=== PATIENT | male | born 1950 | race Caucasian/White ===

== ENCOUNTER 2016-05-29 08:26 | Emergency (ER) ==
[2016-05-29] MEDS ORDERED: ASPIRIN PO STA (08:33)
[2016-05-29 08:48] LABS: MANUAL DIFF NEEDED? NO
[2016-05-29 08:49] LABS: BASO% 0.4 % (0.0-0.8); EOS# 0.13 X1000 (0.0-0.7); EOS% 1.1 % (0.0-10.0); HEMATOCRIT 47.6 % (42.0-52.0); HEMOGLOBIN 16.2 g/dL (14.0-18.0); IMM GRAN# 0.05 X1000 (0.0-0.04); IMM GRAN% 0.4 % (0.0-0.5); LYMPH# 5.31 X1000 (1.2-3.4); MCH 28.1 PG (27-31); MCV 82.5 FL (81-99); MONO# 0.79 X1000 (0.11-0.59); MONO% 6.4 % (1.7-9.3); MPV 9.4 FL (7.4-10.4); NEUT% 48.7 % (42.2-75.2); PLT 348 X1000 (130-400); RBC 5.77 XMIL (4.7-6.1)
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
[2016-05-29 09:02] LABS: INR 1.07 (0.86-1.15); PROTIME 14.2 Seconds (12.1-15.5)
[2016-05-29 09:03] LABS: PTT PL 35.4 Seconds (22.6-43.9)
[2016-05-29 09:11] LABS: AMYLASE 49 U/L (20-200); LIPASE 19 U/L (13-60)
[2016-05-29 09:13] LABS: AGAP 19; ALBUMIN 4.1 g/dL (3.5-5.0); ALKALINE PHOSPHATASE 76 U/L (32-122); BUN 22 mg/dL (8-22); CHLORIDE 98 mmol/L (98-107); CK PROFILE 80 U/L (24-204); COSMO 280; GOT 60 U/L (10-34); GPT 63 U/L (10-44); MAGNESIUM 2.1 mg/dL (1.5-2.7); POTASSIUM 4.2 mmol/L (3.5-5.1); SODIUM 138 mmol/L (136-145); TCO2 21 mmol/L (25-35); TOTAL PROTEIN 8.2 g/dL (6.3-8.3)
[2016-05-29 09:32] LABS: BE -4.5 mmoll (-3.0-3.0); BLOOD TYPE ARTERIAL; DRAW SITE R RADIAL; METHB 1.3 % (0.0-1.5); O2(CT) 20.1 mL/dL (15.0-23.0); PCO2(98.6) 45 mmHg (35-45); PO2(98.6) 59 mmHg (60-100); SAMPLE BLOOD; SAO2 87.1 % (95.0-100.0); THB 17.2 g/dL (11.5-17.4)
[2016-05-29 09:52] LABS: ALLEN TEST YES; MODALITY ROOM AIR
[2016-05-29 10:23] VITALS: BP 145/74
--- NOTE | 2016-05-29 10:40 | EKG Report ---
Test Performed on : 05/29/2016 08:35:49 AM Test Reason : SOB Blood Pressure : / mmHG Vent. Rate : 096 BPM Atrial Rate : 096 BPM P-R Int : 146 ms QRS Dur : 098 ms QT Int : 352 ms P-R-T Axes : 045 -46 060 degrees QTc Int : 444 ms Normal sinus rhythm. Left axis deviation Incomplete right bundle branch block Abnormal ECG No previous ECGs available Unconfirmed Result
--- NOTE | 2016-05-29 10:46 | Diag Imaging Result Document ---
PROCEDURE NAME: CHEST-2 VIEWS - 05/29/2016 PA AND LATERAL RADIOGRAPHS OF THE CHEST: COMPARISON: None available. FINDINGS: The lungs appear somewhat hyperinflated, suggesting possible COPD. There is minimal linear scarring versus subsegmental atelectasis at the right lower lung zone. There is a calcified granuloma at the periphery of the right lower lung zone. The lungs are clear otherwise. There is no definite pleural fluid collection. Cardiac silhouette and central vasculature are essentially unremarkable. IMPRESSION: Suggestion of likely COPD. No definite acute pathology is appreciated.
== END 2016-05-29 10:23 | disposition home or self-care (01) ==
LOC: P.ED 08:26
DX: J44.0 Chronic obstructive pulmonary disease with (acute) lower respiratory infection (principal); J20.9 Acute bronchitis, unspecified; J44.1 Chronic obstructive pulmonary disease with (acute) exacerbation; F10.120 Alcohol abuse with intoxication, uncomplicated; R94.31 Abnormal electrocardiogram [ECG] [EKG]; G89.29 Other chronic pain; R05 Cough; R06.2 Wheezing; R11.0 Nausea; R49.0 Dysphonia
CPT/HCPCS: 36415; 71020; 80053; 82150; 82550; 82805; 83690; 83735; 83880; 84484; 85025; 85610; 85730; 93005; 99284; G0480

== ENCOUNTER 2016-07-27 03:12 | Inpatient (IN) ==
[2016-07-27] MEDS ORDERED: NITROGLYCERIN SL PRN (03:16)
[2016-07-27] MEDS ORDERED: ASPIRIN PO STA (03:16)
[2016-07-27] MEDS ORDERED: M.V.I.-12 10 ML, FOLIC ACID 1 MG, MAGNESIUM SULFATE 1 GM, THIAMINE 100 MG in NS 1,000 ML IV ONE (03:27)
[2016-07-27 03:41] LABS: MANUAL DIFF NEEDED? NO
[2016-07-27 03:44] LABS: BASO% 0.9 % (0.0-0.8); HEMATOCRIT 48.7 % (42.0-52.0); HEMOGLOBIN 16.9 g/dL (14.0-18.0); LYMPH# 3.82 X1000 (1.2-3.4); LYMPH% 56.9 % (20.5-51.1); MCH 28.6 PG (27-31); MCHC 34.7 g/dL (33-37); MCV 82.4 FL (81-99); MPV 10.6 FL (7.4-10.4); NEUT% 33.2 % (42.2-75.2); PLT 151 X1000 (130-400); RBC 5.91 XMIL (4.7-6.1)
[2016-07-27 03:55] LABS: INR 1.01; PROTIME 10.7 Seconds (9.2-11.7); PTT 31.7 Seconds (22.0-36.0)
[2016-07-27 04:01] LABS: AGAP 22; ALKALINE PHOSPHATASE 57 U/L (32-122); AMYLASE 42 U/L (20-200); BUN 11 mg/dL (8-22); CALCIUM 8.7 mg/dL (8.8-10.2); CHLORIDE 98 mmol/L (98-107); COSMO 282; GOT 76 U/L (10-34); GPT 60 U/L (10-44); LIPASE 17 U/L (13-60); MAGNESIUM 1.8 mg/dL (1.5-2.7); POTASSIUM 3.7 mmol/L (3.5-5.1); SODIUM 142 mmol/L (136-145); TCO2 22 mmol/L (25-35); TOTAL BILIRUBIN 0.45 mg/dL (0.20-1.00)
--- NOTE | 2016-07-27 04:04 | PROVIDER DOCUMENTATION ---
[id number] Abuse/Overdose - General Chief Complaint: Shortness of Breath Stated Complaint: SOB Time Seen by Provider: 07/27/16 03:31 Source: patient, old records Allergies/Adverse Reactions: Allergies Allergy/AdvReac Type Severity Reaction Status Date / Time No Known Allergies Allergy Verified 07/27/16 03:35 Home Medications: Home Medication List Medication Instructions Recorded Confirmed Last Taken Type Albuterol Sulfate Inhaler 18 gm IH Q6H PRN PRN #1 inhaler 05/29/16 07/27/1612/06 Rx [Ventolin Hfa] - History of Present Illness-Drug/Alcohol Nature of Presenting Problem: 66 yo WM alcoholic (1/2 gallon of whisky/day for 50 years) brought in by EMS due to SOB. He has smoked up to 3 ppd since age 16 or so. 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 This episode of drinking or use began:: other (50 years ago) Severity: reports: severe Situational problems related to:: reports: N/A Psychiatric Complaints: reports: denies symptoms Associated Symptoms: reports: anxiety, diarrhea (black stools) Any injuries associated with this episode of intoxication?: No Recently seen or treated by another doctor?: No - Substance Abuse Substance Use: reports: alcohol Age drug/alcohol abuse began?: 16 Duration of Abuse? (years): 50 - Alcohol Abuse Last Drink?: 22:00 Type and amount of last drink?: whisky 1/2 gallon/day Usually drinks:: daily Other alcohols?: reports: N/A - Detox/Hospitalizations Previous detox/rehab admissions?: No Review of Systems - Adult - REVIEW OF SYSTEMS - ADULT Constitutional: reports: see HPI Eyes: reports: eye pain, redness Ears, Nose, Mouth & Throat: reports: sinus problem, loose teeth, mouth/dental pain, mouth swelling Cardiovascular: reports: chest pain Respiratory: reports: see HPI, chronic cough, excessive sputum production Gastrointestinal: reports: see HPI, abdominal pain, other (black stools) Musculoskeletal: reports: no symptoms reported Integumentary: reports: itching Neurological: reports: dizziness/vertigo, slurred speech Psychiatric: reports: see HPI Endocrine: reports: no symptoms reported Hematologic/Lymphatic: reports: no symptoms reported Allergic/Immunologic: reports: no symptoms reported All Other Systems: Reviewed and Negative Past History - Adult - PAST MEDICAL HISTORY-ADULT Review of Records: reports: Old Records Reviewed, Nursing Assessment Review, Medications Reviewed Major Childhood Illnesses: reports: denies history Cardiovascular: reports: denies history Respiratory: reports: bronchitis, COPD Gastrointestinal: reports: denies history Genitourinary: reports: denies history Musculoskeletal: reports: chronic pain Neurological: reports: denies history Psychiatric: reports: depression Endocrine/Immune: reports: denies history - PRIOR SURGERIES/PROCEDURES Surgical/Procedure History: reports: other - SOCIAL HISTORY Smoking: cigarettes, greater than 1 pack/day Substance Use: denies Alcohol Use Frequency: every day Number of drinks per typical drinking period:: >20 drinks Living Situation: 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 (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) Physical Exam-General - PHYSICAL EXAM-ADULT Exam Limited by: intoxicated Initial Vital Signs Reviewed: Yes - CONSTITUTIONAL General Appearance: alert, moderate distress, slow to respond - EYES Eyes: conjuctival exudate, subconjunctival hemorrhage - HEAD, EARS, NOSE, MOUTH & THROAT HENMT: normocephalic/atraumatic, dental decay - NECK Neck: non-tender, full range of motion, supple - RESPIRATORY Respiratory: chest non-tender, respiratory distress, wheezing - CARDIOVASCULAR Cardiovascular: normal peripheral pulses, regular rate, rhythm, no edema, no gallop, no JVD - GASTROINTESTINAL (ABDOMEN) Abdominal Exam: no organomegaly, no pulsatile mass, abnormal bowel sounds. negative: normal bowel sounds, non tender - GENITOURINARY Male Genitalia: deferred Rectal Exam: deferred - LYMPHATIC Lymphatic: no adenopathy - MUSCULOSKELETAL Back Exam: normal inspection, no CVA tenderness, no vertebral tenderness Extremity: normal range of motion, non-tender Peripheral Pulses: radial (R): 3+, radial (L): 3+ - NEUROLOGIC Neurologic: grossly normal - PSYCHIATRIC Psych/Mental Status: disheveled Progress - PLAN OF CARE/RESULTS Progress/Plan/Lab Results: Laboratory Tests 07/27/16 07/27/16 07/27/16 03:25 03:25 03:25 WBC 6.71 RBC 5.91 Hgb 16.9 Hct 48.7 MCV 82.4 MCH 28.6 MCHC 34.7 RDW Std Deviation 16.8 H Plt Count 151 MPV 10.6 H Immature Gran % (Auto) 0.0 Neut % (Auto) 33.2 L Lymph % (Auto) 56.9 H [place] % (Auto) 6.0 Eos % (Auto) 3.0 Baso % (Auto) 0.9 H Immature Gran # (Auto) 0.00 Neut # (Auto) 2.23 Lymph # (Auto) 3.82 H [place] # (Auto) 0.40 Eos # (Auto) 0.20 Baso # (Auto) 0.06 PT INR PTT (Actin FS) D-Dimer 0.50 Sodium 142 Potassium 3.7 Chloride 98 Carbon Dioxide 22 L Anion Gap 22 BUN 11 Creatinine 0.9 Estimated GFR/1.73 m2 > 60 BUN/Creatinine Ratio 12 Glucose 98 Calculated Osmolality 282 Calcium 8.7 L Phosphorus Magnesium 1.8 Total Bilirubin 0.45 AST 76 H ALT 60 H Alkaline Phosphatase 57 Creatine Kinase 315 H Troponin T Vmj-L-Jlladmkflsp Pept Total Protein 8.0 Albumin 4.0 Globulin 4.0 Albumin/Globulin Ratio 1.0 Amylase 42 Lipase 17 Plasma/Serum Ethyl Alc 07/27/16 07/27/16 07/27/16 03:25 03:25 03:25 WBC RBC Hgb Hct MCV MCH MCHC RDW Std Deviation Plt Count MPV Immature Gran % (Auto) Neut % (Auto) Lymph % (Auto) [place] % (Auto) Eos % (Auto) Baso % (Auto) Immature Gran # (Auto) Neut # (Auto) Lymph # (Auto) [place] # (Auto) Eos # (Auto) Baso # (Auto) PT 10.7 INR 1.01 PTT (Actin FS) 31.7 D-Dimer Sodium Potassium Chloride Carbon Dioxide Anion Gap BUN Creatinine Estimated GFR/1.73 m2 BUN/Creatinine Ratio Glucose Calculated Osmolality Calcium Phosphorus Magnesium Total Bilirubin AST ALT Alkaline Phosphatase Creatine Kinase Troponin T < 0.010 Our-R-Ufvlvgambfk Pept 67 Total Protein Albumin Globulin Albumin/Globulin Ratio Amylase Lipase Plasma/Serum Ethyl Alc 07/27/16 07/27/16 03:25 03:25 WBC RBC Hgb Hct MCV MCH MCHC RDW Std Deviation Plt Count MPV Immature Gran % (Auto) Neut % (Auto) Lymph % (Auto) [place] % (Auto) Eos % (Auto) Baso % (Auto) Immature Gran # (Auto) Neut # (Auto) Lymph # (Auto) [place] # (Auto) Eos # (Auto) Baso # (Auto) PT INR PTT (Actin FS) D-Dimer Sodium Potassium Chloride Carbon Dioxide Anion Gap BUN Creatinine Estimated GFR/1.73 m2 BUN/Creatinine Ratio Glucose Calculated Osmolality Calcium Phosphorus 2.6 L Magnesium Total Bilirubin AST ALT Alkaline Phosphatase Creatine Kinase Troponin T Gnz-W-Zvfqpiwpjql Pept Total Protein Albumin Globulin Albumin/Globulin Ratio Amylase Lipase Plasma/Serum Ethyl Alc 299 H Orders Category Date Time Status Cardiac Monitoring DIRECTED Care 07/27/16 03:16 Active Saline Loc NOW Care 07/27/16 03:16 Active ABDOMEN FLAT/UPRIGHT [RAD] Stat Exams 07/27/16 04:04 Taken CHEST-2 VIEWS [RAD] Stat Exams 07/27/16 03:16 Ordered ALCOHOL BLOOD Stat Lab 07/27/16 03:25 Completed AMYLASE [CHEM] Stat Lab 07/27/16 03:25 Received CBC WITH ELECTRONIC DIFF [HEME] Stat Lab 07/27/16 03:25 Completed CK PROFILE [SP CHEM] Stat Lab 07/27/16 03:25 Received COMPREHENSIVE METABOLIC PANEL [CHEM] Stat Lab 07/27/16 03:25 Received D-DIMER [CHEM] Stat Lab 07/27/16 03:25 Received LIPASE [CHEM] Stat Lab 07/27/16 03:25 Received MAGNESIUM [CHEM] Stat Lab 07/27/16 03:25 Received PHOSPHORUS [CHEM] Stat Lab 07/27/16 03:25 Completed PRO B-NATRIURETIC PEPTIDE Stat Lab 07/27/16 03:25 Received PROTIME WITH INR [COAG] Stat Lab 07/27/16 03:25 Completed PTT [COAG] Stat Lab 07/27/16 03:25 Completed TROPONIN T Stat Lab 07/27/16 03:25 Received Aspirin Med 07/27/16 03:16 Discontinued 325 mg PO STAT STA Mvi [M.v.i.-12] 10 ml Med 07/27/16 03:27 Active Folic Acid 1 mg Magnesium Sulfate 1 gm Thiamine 100 mg 0.9% Sodium Chloride Inj [Ns] 1,000 ml IV NOW Nitroglycerin Sl [Nitroglycerin] Med 07/27/16 03:16 Active 0.4 mg SL Q5M PRN PRN EKG [EKG] Stat Ther 07/27/16 03:16 Ordered Vital Signs Temp Pulse Resp BP Pulse Ox 07/27/16 03:13 97.8 F 102 H 24 160/100 93 L No Known Allergies Allergy (Verified 07/27/16 03:35) Albuterol Sulfate Inhaler [Ventolin Hfa] 18 gm IH Q6H PRN PRN #1 inhaler Laboratory 07/27/16 07/27/16 07/27/16 03:25 03:25 03:25 WBC RBC Hgb Hct MCV MCH MCHC RDW Std Deviation Plt Count MPV Immature Gran % (Auto) Neut % (Auto) Lymph % (Auto) [place] % (Auto) Eos % (Auto) Baso % (Auto) Immature Gran # (Auto) Neut # (Auto) Lymph # (Auto) [place] # (Auto) Eos # (Auto) Baso # (Auto) PT INR PTT (Actin FS) D-Dimer Sodium Potassium Chloride Carbon Dioxide Anion Gap BUN Creatinine Estimated GFR/1.73 m2 BUN/Creatinine Ratio Glucose Calculated Osmolality Calcium Phosphorus 2.6 L Magnesium Total Bilirubin AST ALT Alkaline Phosphatase Creatine Kinase Troponin T < 0.010 Cbs-J-Rfcqogskkup Pept Total Protein Albumin Globulin Albumin/Globulin Ratio Amylase Lipase Plasma/Serum Ethyl Alc 299 H 07/27/16 07/27/16 07/27/16 03:25 03:25 03:25 WBC RBC Hgb Hct MCV MCH MCHC RDW Std Deviation Plt Count MPV Immature Gran % (Auto) Neut % (Auto) Lymph % (Auto) [place] % (Auto) Eos % (Auto) Baso % (Auto) Immature Gran # (Auto) Neut # (Auto) Lymph # (Auto) [place] # (Auto) Eos # (Auto) Baso # (Auto) PT 10.7 INR 1.01 PTT (Actin FS) 31.7 D-Dimer 0.50 Sodium Potassium Chloride Carbon Dioxide Anion Gap BUN Creatinine Estimated GFR/1.73 m2 BUN/Creatinine Ratio Glucose Calculated Osmolality Calcium Phosphorus Magnesium Total Bilirubin AST ALT Alkaline Phosphatase Creatine Kinase Troponin T Xxd-R-Etzlzapidwq Pept 67 Total Protein Albumin Globulin Albumin/Globulin Ratio Amylase Lipase Plasma/Serum Ethyl Alc 07/27/16 07/27/16 03:25 03:25 WBC 6.71 RBC 5.91 Hgb 16.9 Hct 48.7 MCV 82.4 MCH 28.6 MCHC 34.7 RDW Std Deviation 16.8 H Plt Count 151 MPV 10.6 H Immature Gran % (Auto) 0.0 Neut % (Auto) 33.2 L Lymph % (Auto) 56.9 H [place] % (Auto) 6.0 Eos % (Auto) 3.0 Baso % (Auto) 0.9 H Immature Gran # (Auto) 0.00 Neut # (Auto) 2.23 Lymph # (Auto) 3.82 H [place] # (Auto) 0.40 Eos # (Auto) 0.20 Baso # (Auto) 0.06 PT INR PTT (Actin FS) D-Dimer Sodium 142 Potassium 3.7 Chloride 98 Carbon Dioxide 22 L Anion Gap 22 BUN 11 Creatinine 0.9 Estimated GFR/1.73 m2 > 60 BUN/Creatinine Ratio 12 Glucose 98 Calculated Osmolality 282 Calcium 8.7 L Phosphorus Magnesium 1.8 Total Bilirubin 0.45 AST 76 H ALT 60 H Alkaline Phosphatase 57 Creatine Kinase 315 H Troponin T Dyl-F-Rngsugvvcsg Pept Total Protein 8.0 Albumin 4.0 Globulin 4.0 Albumin/Globulin Ratio 1.0 Amylase 42 Lipase 17 Plasma/Serum Ethyl Alc - EKG 1 Time of EKG reading by physician:: 04:33 EKG Read and Signed by:: Joseph Lutz Rate: 98 Rhythm: sinus [place]: left - XRAY 1 XRAY Study: Chest Impression: Abnormal, See EMR Report XRAY Interpretation: copd 2 XRAY Study: Abdomen Impression: Normal - CONSULTS/PCP/HOSPITALIST Notification #1 *Consult/PCP/Hospitalist*: Dr Bass Time Discussed: 06:13 Departure - Departure Time of Disposition Order: 06:14 DIAGNOSIS: Alcohol abuse with intoxication with complication Disposition: ADMITTED INPATIENT 09 Certified Medical Emergency: Emergent Condition: Fair
[2016-07-27 04:25] LABS: CK PROFILE 315 U/L (24-204)
[2016-07-27 04:40] LABS: CK INDEX 0.8 (0.0-2.5); CK-MB 2.61 ng/mL (0.0-5.0)
[2016-07-27] MEDS ORDERED: ATIVAN IV ONE ×2 (05:11→06:45)
[2016-07-27] MEDS ORDERED: ZOFRAN IV ONE (06:52)
--- NOTE | 2016-07-27 07:44 | EKG Report ---
Test Performed on : 07/27/2016 03:15:15 AM Test Reason : Chest Pain Blood Pressure : / mmHG Vent. Rate : 098 BPM Atrial Rate : 098 BPM P-R Int : 134 ms QRS Dur : 088 ms QT Int : 338 ms P-R-T Axes : 054 -54 060 degrees QTc Int : 431 ms Normal sinus rhythm. Left axis deviation Abnormal ECG When compared with ECG of 29-MAY-2016 08:35, Incomplete right bundle branch block is no longer present Unconfirmed Result
--- NOTE | 2016-07-27 08:16 | Diag Imaging Result Document ---
PROCEDURE NAME: CHEST-2 VIEWS - 07/27/2016 FRONTAL AND LATERAL CHEST, TWO VIEWS: COMPARISON: Compared to 06/08/2016. FINDINGS: The lungs are well expanded. The heart is not enlarged. The vessels are not distended. No pleural effusions. Questionable tiny amount of scarring in the left base. 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 No free air beneath the diaphragm. IMPRESSION: No acute abnormality.
[2016-07-27] MEDS ORDERED: DUONEB (A & A) INH PRN (08:47)
[2016-07-27] MEDS ORDERED: ATIVAN IV PRN (08:47)
--- NOTE | 2016-07-27 09:01 | Diag Imaging Result Document ---
PROCEDURE NAME: ABDOMEN FLAT/UPRIGHT - 07/27/2016 FLAT AND UPRIGHT RADIOGRAPH OF THE ABDOMEN: COMPARISON: None available. FINDINGS: There are nonspecific bowel gas and stool patterns. There is no obstructive pattern. There is no evidence of large-volume free abdominal gas. There is no definite organomegaly. Metallic clips project over the right upper quadrant. IMPRESSION: Nonspecific abdomen.
[2016-07-27] MEDS: ATIVAN IV PRN ×4 (09:43→23:38)
[2016-07-27] MEDS: ZOFRAN IV PRN ×2 (10:00→14:11)
--- NOTE | 2016-07-27 10:05 | Diag Imaging Result Document ---
PROCEDURE NAME: THORAX/ABDOMEN/PELVIS - 07/27/2016 CT CHEST, ABDOMEN AND PELVIS WITH INTRAVENOUS CONTRAST. DOSE REDUCTION PROTOCOL: COMPARISON: No comparison films. CHEST WITH CONTRAST: FINDINGS: No pleural effusions. No cardiomegaly. No thoracic aortic aneurysm or dissection. No enlarged mediastinal or hilar lymph nodes. There are emphysematous changes. Increased markings are found in the right lower lobe. No consolidation. No bronchiectasis. Mild thickening to the distal esophagus. IMPRESSION: 1. Right lower lobe fibrosis, atelectasis, or a small infiltrate. 2. Emphysema. ABDOMEN AND PELVIS WITH INTRAVENOUS CONTRAST: FINDINGS: There is prominent fatty infiltration of the liver. The gallbladder has been removed. There is thickening to the distal esophagus. Normal spleen and adrenal glands. No inflammation about the pancreas. No pancreatic mass. Normal enhancement of the kidneys. No hydronephrosis. No aortic aneurysm. Moderate atherosclerosis. No bowel obstruction. Normal appearance. No abscess. There is an anterior abdominal wall hernia above the umbilicus. A portion of the transverse colon is found within this. No obstruction or definite wall thickening although the colon is not overly distended. There are diverticula in the distal colon. The urinary bladder is distended and appears normal. The prostate is not enlarged. IMPRESSION: 1. Small anterior abdominal wall hernia containing a portion of transverse colon, but no obstruction or definite wall thickening. 2. Cholecystectomy. 3. Prominent fatty infiltration of the liver. 4. Possible reflux and esophagitis. 5. Diverticulosis. 6. Mild superior endplate compression fracture to the L1 vertebra. This is not definitely identified on the lateral chest x-ray from 06/08/2016.
[2016-07-27] MEDS: NS 1,000 ML IV SCH ×2 (10:07→20:36)
[2016-07-27] MEDS: ROCEPHIN 1 GM/NS 50 ML IV SCH (10:07)
[2016-07-27] MEDS: PROTONIX IV SCH ×2 (10:08→20:30)
[2016-07-27 10:24] LABS: RETIC% 0.71 % (0.8-2.1); RETIC-HE 34.3 PG (28.2-36.6)
[2016-07-27 10:34] LABS: HEMOGLOBIN A1C 6.2 % (4.8-6.0)
[2016-07-27] MEDS: DUONEB (A & A) INH SCH ×4 (10:40→22:57)
[2016-07-27 10:43] LABS: FREE T4 0.92 ng/dL (0.93-1.70)
[2016-07-27 10:51] LABS: URINE CULTURE NEEDED? NO; URINE MICRO REVIEW NEEDED? NO; URINE SOURCE CLEAN CATCH
[2016-07-27 10:57] LABS: BILIRUBIN URINE NEGATIVE (NEGATIVE); BLOOD URINE NEGATIVE (NEGATIVE); COLOR YELLOW; GLUCOSE URINE NEGATIVE (NEGATIVE); LEUKOCYTES URINE NEGATIVE (NEGATIVE); NITRITE URINE NEGATIVE (NEGATIVE); PROTEIN URINE 50 mg/dL (NEGATIVE); SP GRAVITY URINE 1.026; TURBIDITY URINE CLEAR (CLEAR); UR EPITHELIAL CELLS <10 /HPF (<10); URINE BACTERIA NEGATIVE /HPF; URINE RBC <10 /HPF (<10); URINE WBC <10 /HPF (<10); UROBILINOGEN URINE 2 mg/dL (NORMAL)
[2016-07-27 11:04] LABS: CK INDEX 0.9 (0.0-2.5); CK-MB 2.68 ng/mL (0.0-5.0)
[2016-07-27 11:49] LABS: UR AMPHETAMINES QUAL NONE DETECTED (NONE DETECT); UR BARBITUATES QUAL NONE DETECTED (NONE DETECT); UR BENZODIAZEPIN QUAL NONE DETECTED (NONE DETECT); UR CANNABINOIDS QUAL NONE DETECTED (NONE DETECT); UR COCAINE QUAL NONE DETECTED (NONE DETECT); UR METHADONE QUAL NONE DETECTED (NONE DETECT); UR OPIATES QUAL NONE DETECTED (NONE DETECT); UR OXYCODONE QUAL NONE DETECTED (NONE DETECT); UR PCP QUAL NONE DETECTED (NONE DETECT)
--- NOTE | 2016-07-27 12:41 | HISTORY AND PHYSICAL ---
CHIEF COMPLAINT: Shortness of breath and alcohol withdrawal. HISTORY OF PRESENT ILLNESS: Mr. Rahman is an unfortunate 66-year-old male, who carries a longstanding history of polysubstance dependence including consumption of half gallon to a gallon of whiskey a day, occasional prescription drug abuse, nicotine dependence, also with a history of hypertension, who presents with multiple days of worsening alcohol withdrawal symptoms including shaking, sweating, diarrhea, dry heaves, and abdominal pain. He has also been having shortness of breath with cough and yellow sputum production. He is unsure exactly when symptoms began but likely around 3 or 4 days ago he started having mild shortness of breath with cough and this progressed to fairly significant shortness of breath and coughing with yellow sputum production. He denies any overt fevers but reports cold chills and sweats. He has tried to wean himself off of alcohol and, apparently, he tried to buy a fifth of whiskey instead of a half gallon or gallon, and he says this did not work, and he has been having fairly severe alcohol withdrawal symptoms as well. He denies any chest pain. He denies any seizures. No loss of consciousness. No orthopnea. No lower extremity edema. He has longstanding ventral wall hernias in his abdomen, and this has been causing him significant pain for quite some time. On physical exam, his belly is somewhat distended and generally painful to palpation. When he got to the ER today, his alcohol level was 300. His laboratory data is largely unremarkable. Chest and abdomen x-ray did not show anything acute. He has already been given multiple milligrams of Ativan for withdrawal symptoms. Given his heavy alcohol consumption and symptomatology, we are going to admit him to the ICU for close treatment and evaluation. Currently, he is mildly hypoxic saturating in the low 90s with 3 L of nasal cannula. His blood pressure and heart rate are stable. PAST MEDICAL HISTORY: 1. Alcohol dependence. 2. Marijuana dependence. 3. Prescription drug dependence including opiate pain killers and benzodiazepines. 4. Hypertension. 5. COPD. SURGICAL HISTORY: The patient has had a right femur ORIF, a right wrist ORIF, cholecystectomy secondary to trauma. SOCIAL HISTORY: The patient drinks about a half gallon to a gallon of whiskey a day and has been doing so apparently for decades. He smokes a pack and a half to 2 packs of cigarettes a day; again, for decades. He reports occasional prescription drug abuse taking opiates and benzodiazepines roughly 1-2 times a month. He was quite nonspecific about that. He smokes occasional marijuana as well. He is single. He has 3 children. He is retired from [employer]. He lives in the [place] area. FAMILY HISTORY: Noncontributory but, apparently, he has quite a few alcoholics in the family. HOME MEDICATIONS: None. ALLERGIES: No known drug allergies. REVIEW OF SYSTEMS: Fourteen-point review of systems obtained and found to be negative with the exception of the HPI. PHYSICAL EXAMINATION: VITAL SIGNS: Blood pressure is 162/109, heart rate 84, respiratory rate 20, O2 saturations 93% on 2 L. Temperature is 97.6 degrees. GENERAL: This is an obese male lying in the hospital bed in mild alcohol withdrawal, but in no acute distress. NEUROLOGIC: The patient is awake and alert. He is oriented. He follows coverage without focal deficits. He is somewhat nervous and agitated. His hands are only mildly tremulous. HEENT: Head atraumatic and normocephalic. His pupils are equal and sluggish to light bilaterally. His sclerae are injected and anicteric. Oral mucosa is dry. He has poor dentition. Overall oropharynx is clear. CHEST: Diminished throughout with, perhaps, only slight wheezing bilaterally. CV: Regular rate and rhythm. S1-S2 is noted. No murmurs, gallops, clicks, or rubs. GI: Somewhat distended. He has clear ventral wall hernia that is painful to palpation. Overall, his belly is diffusely tender mostly in the epigastric and periumbilical region. Hypoactive bowel sounds are noted. EXTREMITIES: Diminished pulses are noted bilaterally but palpable. There is no edema. DIAGNOSTIC DATA: Abdomen x-ray shows nonspecific abdomen. Nothing acute. Chest x-ray shows no acute abnormality. EKG shows sinus tachycardia without acute ST-T abnormalities. There is left axis deviation. WBC 6.71, hemoglobin 16.9, hematocrit 48.7, platelet count 151,000. PT 10.7, INR 1.01. D-dimer 0.5. Sodium 142, potassium 3.7, chloride 98, CO2 of 22, anion gap 22. BUN 11, creatinine 0.9, glucose 98. Calcium 8.7, phosphorus 2.6. Magnesium 1.8. Bilirubin 0.45. AST 76, ALT 60. CK 315. Troponin negative. CK-MB 2.61. Protein 8. Lipase is 17. Alcohol level is 299. ASSESSMENT AND PLAN: 1. Acute alcohol intoxication/withdrawal: The patient is currently drinking heavy amounts of liquor on a daily basis. We are going to need to admit him to the ICU and watch him closely to prevent delirium tremens or withdrawal seizures. We have ordered IV benzodiazepines as needed, we will likely schedule these and have IV Valium or phenobarbital as standby if symptoms worsen. We are also going to start a banana bag, check a folate and B12, check a hepatitis panel and check a CT of his thorax, abdomen, and pelvis. Again, he will be monitored in the ICU quite closely. 2. Dyspnea: Likely COPD exacerbation. We will treat him for such with breathing treatments and IV antibiotics and aggressive pulmonary toilet. We are also going to check a CT of the thorax with IV contrast. The amount of dyspnea and hypoxia is not concordant with his chest x-ray, so, we will rule out alternative causes and also check an echocardiogram, rule out myocardial infarction with cardiac enzymes. 3. Abdominal pain. We are going to check a CT of the abdomen and pelvis, add Protonix b.i.d. and IV fluids. Given the amount of alcohol, the patient has been using, cirrhosis is likely. We will check a CT of the abdomen and go from there. 4. Hypertension: We will be cautious with antihypertensives with the addition of high doses of benzodiazepine. We will treat p.r.n. with hydralazine or clonidine. 5. Polysubstance dependence: The patient will need long-term therapy including 12-step groups and psychotherapy. Once the patient is a bit more stable, we will continue to talk about this more. 6. Nicotine dependence: The patient has been highly advised to quit smoking. Nicotine patch has been prescribed, and we will continue daily cessation education. 7. Gastrointestinal prophylaxis will be provided with b.i.d. Protonix and deep venous thrombosis prophylaxis with TEDs sequential compression devices given his high levels of alcohol use and potency for bleeding. Further recommendations to follow. Please note: Critical care time with the patient was 45 minutes. Dictated by FLOYD Borrego for Khang Gr MD
[2016-07-27] MEDS ORDERED: PHENOBARBITAL IV ONE ×2 (20:08→20:45)
[2016-07-27] MEDS ORDERED: BEER PO ONE ×3 (20:09→21:30)
[2016-07-27] MEDS ORDERED: PHENOBARBITAL IV PRN (20:10)
[2016-07-27] MEDS ORDERED: CATAPRES PO SCH (20:15)
[2016-07-27] MEDS ORDERED: LIBRIUM PO SCH (20:15)
[2016-07-27] MEDS: SODIUM CHLORIDE 0.9% INJ SCH (20:30)
[2016-07-27] MEDS: TEARISOL OPH SOLUTION BOTH EYES SCH (20:30)
[2016-07-27] MEDS ORDERED: CATAPRES-TTS-1 TD ONE (20:39)
[2016-07-27] MEDS ORDERED: CATAPRES PO ONE (20:40)
[2016-07-27] MEDS: VALIUM IV PRN ×4 (21:11→22:17)
[2016-07-27] MEDS: PHENOBARBITAL IV PRN (22:17)
[2016-07-27 22:46] LABS: URINE CULTURE NEEDED? NO; URINE MICRO REVIEW NEEDED? NO; URINE SOURCE CATH
[2016-07-27 22:50] LABS: BILIRUBIN URINE NEGATIVE (NEGATIVE); BLOOD URINE TRACE (NEGATIVE); COLOR YELLOW; GLUCOSE URINE NEGATIVE (NEGATIVE); LEUKOCYTES URINE NEGATIVE (NEGATIVE); NITRITE URINE NEGATIVE (NEGATIVE); PH URINE 5.5; PROTEIN URINE TRACE mg/dL (NEGATIVE); SP GRAVITY URINE 1.041; TURBIDITY URINE CLEAR (CLEAR); UROBILINOGEN URINE NORMAL (NORMAL)
[2016-07-27 22:52] LABS: UR EPITHELIAL CELLS <10 /HPF (<10); URINE BACTERIA NEGATIVE /HPF; URINE RBC <10 /HPF (<10); URINE WBC <10 /HPF (<10)
[2016-07-28] MEDS: PHENOBARBITAL IV PRN ×5 (00:57→21:19)
[2016-07-28] MEDS: ATIVAN IV PRN ×4 (01:48→20:37)
[2016-07-28] MEDS: DUONEB (A & A) INH SCH ×6 (02:48→22:35)
[2016-07-28] MEDS: M.V.I.-12 10 ML, FOLIC ACID 1 MG, MAGNESIUM SULFATE 1 GM, THIAMINE 100 MG in NS 1,000 ML IV SCH (04:02)
[2016-07-28 05:43] LABS: MANUAL DIFF NEEDED? NO
[2016-07-28 06:46] LABS: BASO% 0.4 % (0.0-0.8); EOS# 0.13 X1000 (0.0-0.7); EOS% 2.5 % (0.0-10.0); HEMATOCRIT 38.6 % (42.0-52.0); HEMOGLOBIN 12.9 g/dL (14.0-18.0); LYMPH# 1.37 X1000 (1.2-3.4); LYMPH% 26.1 % (20.5-51.1); MCH 28.6 PG (27-31); MCHC 33.4 g/dL (33-37); MCV 85.6 FL (81-99); MONO# 0.37 X1000 (0.11-0.59); MPV 10.9 FL (7.4-10.4); PLT 98 X1000 (130-400); RBC 4.51 XMIL (4.7-6.1)
[2016-07-28 07:09] LABS: AGAP 16; ALBUMIN 3.4 g/dL (3.5-5.0); ALKALINE PHOSPHATASE 43 U/L (32-122); BUN 8 mg/dL (8-22); CALCIUM 7.8 mg/dL (8.8-10.2); CHLORIDE 101 mmol/L (98-107); COSMO 278; GOT 52 U/L (10-34); GPT 41 U/L (10-44); POTASSIUM 4.2 mmol/L (3.5-5.1); SODIUM 141 mmol/L (136-145); TCO2 24 mmol/L (25-35); TOTAL BILIRUBIN 0.76 mg/dL (0.20-1.00); TOTAL PROTEIN 6.6 g/dL (6.3-8.3)
[2016-07-28] MEDS: ROCEPHIN 1 GM/NS 50 ML IV SCH (08:30)
[2016-07-28] MEDS: PROTONIX IV SCH ×2 (08:30→20:37)
[2016-07-28] MEDS: SODIUM CHLORIDE 0.9% INJ SCH ×2 (08:30→20:37)
[2016-07-28] MEDS: TEARISOL OPH SOLUTION BOTH EYES SCH ×4 (08:30→20:38)
--- NOTE | 2016-07-28 09:10 | PROGRESS NOTE ---
DATE: 07/28/2016 SUBJECTIVE: This patient is alert and oriented today. Also, he is tolerating p.o. During the night, this patient had an episode of withdrawal, high blood pressure, sweating, and confusion that was treated by the night team. Today, the blood pressure is high and he looks a little bit better. He is complaining of back pain and diffuse abdominal pain. We started talking about quitting smoking and the possibility of a detox center upon discharge. This patient states that he has been in some of the detox centers but it did not work. I will continue with daily cessation education. OBJECTIVE: Vital Signs: Temperature 98.2 degrees, pulse 80, respiratory rate 22, blood pressure 170/93, oxygen saturation is 92 on 3 L of nasal cannula. HEENT: Head normocephalic. No trauma. PERRLA. Neck: Supple. No JVD. No masses. Central trachea. Chest: Decreased air entry bilaterally. Mild rales at the bases. Cardiovascular: RRR. No murmurs. Abdomen: Soft, distended, generalized tenderness to palpation but mostly at the level of the epigastric area. No rebound. No peritoneal irritation. Extremities: No edema. No clubbing. No cyanosis. Neurological Examination: The patient is alert and oriented x3. He looks anxious. Laboratory: WBC 5.2, hemoglobin 12.9, hematocrit 38.6, platelets 98,000. Sodium 141, potassium 4.2, chloride 101, bicarbonate 24, BUN 8, creatinine 0.8, glucose 78, calcium 7.8. Total bilirubin 0.7, AST 52, ALT 41, alkaline phosphatase 43. Albumin 3.4. ASSESSMENT AND PLAN: 1. Acute alcohol intoxication/withdrawal. I will put this patient on scheduled Librium 50 mg every 6 hours. I will continue monitoring this patient in the intensive care unit. Also, this patient is on Ativan as needed. I started talking to this patient about the possibility of a detox center but I think it is too soon to talk about that. He states though that he has been in some detox centers before. I will continue also with the intravenous hydration and banana bag. 2. Dyspnea. At this moment, this patient is on breathing treatments and aggressive pulmonary toilet. We will continue to monitor. His CT with contrast of the chest showed right lower lobe fibrosis, atelectasis, and emphysema so the shortness of breath is likely related to a chronic obstructive pulmonary disease exacerbation. 3. Abdominal pain. This patient is complaining of diffuse abdominal pain. We had a CT scan that showed a small anterior abdominal wall hernia containing a portion of the transverse colon but no obstruction or any definite wall thickening. He also has a prominent fatty infiltration of the liver, esophagitis, diverticulosis. 4. Hypertension. I will put this patient on clonidine schedule. The blood pressure has been high, between 180s and 170s. 5. Polysubstance dependence. This patient has been highly advised against alcohol and cigarette smoking. I will continue with daily cessation education. I think this patient should be transferred in a few days to a detox center. 6. Nicotine dependence. As above. 7. Gastrointestinal prophylaxis. Continue with Protonix. 8. Deep venous thrombosis prophylaxis. We will do sequential compression devices for now. CRITICAL CARE TIME: 45 minutes.
[2016-07-28] MEDS: CATAPRES PO SCH ×2 (09:31→20:37)
[2016-07-28] MEDS: LIBRIUM PO SCH ×3 (09:31→20:37)
[2016-07-28 13:01] LABS: HEPATITIS PROFILE ACUTE SEE COMMENTS (())
[2016-07-28] MEDS: NS 1,000 ML IV SCH ×2 (15:21→15:26)
[2016-07-29] MEDS: DUONEB (A & A) INH SCH ×6 (02:47→23:02)
[2016-07-29] MEDS: M.V.I.-12 10 ML, FOLIC ACID 1 MG, MAGNESIUM SULFATE 1 GM, THIAMINE 100 MG in NS 1,000 ML IV SCH (04:05)
[2016-07-29] MEDS: LIBRIUM PO SCH ×4 (04:05→20:13)
[2016-07-29] MEDS: NS 1,000 ML IV SCH ×3 (04:08→20:13)
[2016-07-29] MEDS: ATIVAN IV PRN ×3 (04:19→13:02)
[2016-07-29] MEDS: PHENOBARBITAL IV PRN ×5 (04:36→18:52)
[2016-07-29] MEDS ORDERED: VALIUM IV ONE (04:47)
[2016-07-29 05:46] LABS: MANUAL DIFF NEEDED? NO
[2016-07-29 05:49] LABS: BASO% 0.2 % (0.0-0.8); EOS% 3.9 % (0.0-10.0); HEMATOCRIT 39.8 % (42.0-52.0); HEMOGLOBIN 13.3 g/dL (14.0-18.0); LYMPH# 1.31 X1000 (1.2-3.4); LYMPH% 25.6 % (20.5-51.1); MCH 28.7 PG (27-31); MCHC 33.4 g/dL (33-37); MCV 85.8 FL (81-99); MONO# 0.31 X1000 (0.11-0.59); MONO% 6.1 % (1.7-9.3); MPV 12.4 FL (7.4-10.4); NEUT% 64.2 % (42.2-75.2); PLT 118 X1000 (130-400); RBC 4.64 XMIL (4.7-6.1)
[2016-07-29 07:51] LABS: AGAP 15; BUN 5 mg/dL (8-22); CHLORIDE 97 mmol/L (98-107); COSMO 268; POTASSIUM 3.7 mmol/L (3.5-5.1); SODIUM 136 mmol/L (136-145); TCO2 24 mmol/L (25-35)
[2016-07-29] MEDS: TEARISOL OPH SOLUTION BOTH EYES SCH ×4 (08:28→20:27)
[2016-07-29] MEDS: CATAPRES PO SCH ×2 (08:28→20:14)
[2016-07-29] MEDS: ROCEPHIN 1 GM/NS 50 ML IV SCH (08:29)
[2016-07-29] MEDS: PROTONIX IV SCH ×2 (08:29→20:30)
--- NOTE | 2016-07-29 11:10 | PROGRESS NOTE ---
DATE: 07/29/2016 SUBJECTIVE: This patient has been in the ICU for a couple of days. Today he looks somnolent but he is arousable and following commands. He has been a heavy drinker for a very long period of time. He drinks around 1.8 L daily of liquor. His vital signs have been stable. I will continue for now with the same treatment. OBJECTIVE: Vital Signs: Temperature 98 degrees, pulse 88, respiratory rate 16, blood pressure 137/78 looking right now at the monitor, oxygen saturation 97% on a Venturi mask. HEENT: Head normocephalic. No trauma. PERRLA. Neck: Supple. No JVD. No masses. Central trachea. Chest: Clear to auscultation. No wheezing. No rales. Abdomen: Soft, distended. Nontender to palpation. Positive bowel sounds. Cardiovascular: RRR. No murmurs. Extremities: No edema. No clubbing. No cyanosis. Neurological: The patient is sleepy but arousable. He is following commands. No signs of delirium tremens or alcohol withdrawal at this moment. LABORATORY: WBC 5.1, hemoglobin 13.3, hematocrit 39.4, platelets 118,000. Sodium 136, potassium 3.7, chloride 97, bicarbonate 24, BUN 5, creatinine 0.7, glucose 85, calcium 8. ASSESSMENT AND PLAN: 1. Acute alcoholic intoxication/withdrawal. I will continue with the same treatment. He is on Librium 50 mg every 6 hours p.o. and also he has p.r.n. medication in case of alcohol withdrawal, delirium tremens, or seizures. Once this patient is ready to talk, I will talk about sending this patient to a detox center. I will continue with the IV fluids and multivitamin. 2. Dyspnea. I will continue with respiratory treatment, but this patient is not complaining today of shortness of breath. 3. Abdominal pain. The abdominal pain is getting better. We will continue to monitor. 4. Hypertension. This patient is on clonidine scheduled. The blood pressure has been stable. Continue to monitor. 5. Polysubstance dependence. This patient has been highly advised against alcohol and cigarette smoking. I will continue with daily cessation education. 6. Gastrointestinal prophylaxis. Continue with Protonix. 7. Deep vein thrombosis prophylaxis. We will do sequential compression devices for now. CRITICAL CARE TIME: 45 minutes.
[2016-07-29] MEDS: NICODERM PATCH TD PRN (20:14)
[2016-07-29] MEDS: SODIUM CHLORIDE 0.9% INJ SCH (20:29)
[2016-07-30] MEDS: DUONEB (A & A) INH SCH ×6 (03:35→23:48)
[2016-07-30] MEDS: LIBRIUM PO SCH ×4 (03:38→20:42)
[2016-07-30] MEDS: M.V.I.-12 10 ML, FOLIC ACID 1 MG, MAGNESIUM SULFATE 1 GM, THIAMINE 100 MG in NS 1,000 ML IV SCH (03:38)
[2016-07-30 05:01] LABS: MANUAL DIFF NEEDED? NO
[2016-07-30 05:14] LABS: BASO% 0.4 % (0.0-0.8); EOS# 0.17 X1000 (0.0-0.7); EOS% 3.4 % (0.0-10.0); HEMATOCRIT 40.4 % (42.0-52.0); HEMOGLOBIN 13.5 g/dL (14.0-18.0); LYMPH% 27.6 % (20.5-51.1); MCH 28.8 PG (27-31); MCHC 33.4 g/dL (33-37); MCV 86.3 FL (81-99); MONO# 0.25 X1000 (0.11-0.59); MONO% 4.9 % (1.7-9.3); NEUT% 63.7 % (42.2-75.2); PLT 80 X1000 (130-400); RBC 4.71 XMIL (4.7-6.1)
[2016-07-30 05:23] LABS: AGAP 17; ALBUMIN 3.6 g/dL (3.5-5.0); ALKALINE PHOSPHATASE 48 U/L (32-122); BUN 5 mg/dL (8-22); CHLORIDE 98 mmol/L (98-107); COSMO 270; GOT 60 U/L (10-34); GPT 44 U/L (10-44); POTASSIUM 3.8 mmol/L (3.5-5.1); SODIUM 137 mmol/L (136-145); TCO2 22 mmol/L (25-35); TOTAL BILIRUBIN 0.51 mg/dL (0.20-1.00); TOTAL PROTEIN 7.2 g/dL (6.3-8.3)
[2016-07-30] MEDS: CATAPRES PO SCH ×2 (08:19→20:42)
[2016-07-30] MEDS: TEARISOL OPH SOLUTION BOTH EYES SCH ×4 (08:20→20:44)
[2016-07-30] MEDS: SODIUM CHLORIDE 0.9% INJ SCH ×2 (08:21→20:42)
[2016-07-30] MEDS: PROTONIX IV SCH ×2 (08:21→20:42)
[2016-07-30] MEDS: ROCEPHIN 1 GM/NS 50 ML IV SCH (08:21)
[2016-07-30] MEDS: NS 1,000 ML IV SCH ×2 (12:08→21:13)
[2016-07-30 13:10] LABS: HCV BY PCR SEE COMMENTS (()); HCV CHARGE YES
[2016-07-30] MEDS: ATIVAN IV PRN ×2 (14:19→18:38)
--- NOTE | 2016-07-30 15:17 | PROGRESS NOTE ---
DATE: 07/30/2016 SUBJECTIVE: This patient looks a little bit better today compared with yesterday, he is still confused in time. He is oriented in place and person. He is weak and he is tolerating ice chips and sips of water. My plan today is to continue with the same treatment. Advance the diet and physical therapy. Probably in 1 or 2 days I am going to be able to send this patient to the regular floor. OBJECTIVE: Vital Signs: Temperature 98.5 degrees, pulse 88, respiratory rate 22, blood pressure 101/57, O2 saturation 93% on 5 L of nasal cannula. HEENT: Head normocephalic. No trauma. PERRLA. Neck: Supple. No JVD. No masses. Central trachea. Chest: Clear to auscultation. No wheezing. No rales. Abdomen: Soft, obese, mildly distended. Tender to palpation at the lower abdominal area. Positive bowel sounds. Cardiovascular: RRR. No murmurs. Extremities: No edema. No clubbing. No cyanosis. Neurological: The patient is sleepy, but arousable. He is oriented in person and place. He is oriented in time. No signs of delirium tremens or alcohol withdrawal at this moment. LABORATORY: WBC 5, hemoglobin 13.5, hematocrit 40.4, platelets 80. Sodium 137, potassium 3.8, chloride 98, bicarbonate 22, BUN 5, creatinine 0.6, glucose 78, calcium 8. ASSESSMENT AND PLAN: 1. Acute alcoholic intoxication/withdrawal. I will continue with the same management. He is on Librium 50 mg every 6 hours oral, and also as-needed medications in case of alcohol withdrawal or delirium tremens or seizures. Probably this patient will be sent to a detoxification center next week once he is better. Today, I will ask for physical therapy and also I will advance the diet. Also, we will continue with intravenous fluids and multivitamin. 2. Dyspnea. At this moment he is not complaining of shortness of breath. I will continue with the same treatment. 3. Abdominal pain. Even though the abdominal pain is getting better, he is still complaining of lower abdominal pain. We will continue to monitor. 4. Hypertension. This patient is on clonidine schedule. The blood pressure has been stable. Continue to monitor. 5. Polysubstance dependence. This patient has been highly advised against alcohol and cigarette smoking. I will continue with daily cessation education. 6. Gastrointestinal prophylaxis. Continue with Protonix. 7. Deep vein thrombosis prophylaxis. I will continue with sequential compression devices. CRITICAL CARE TIME: 30 minutes.
[2016-07-31] MEDS: LIBRIUM PO SCH ×4 (02:23→20:54)
[2016-07-31] MEDS: DUONEB (A & A) INH SCH ×6 (03:48→23:53)
[2016-07-31] MEDS: M.V.I.-12 10 ML, FOLIC ACID 1 MG, MAGNESIUM SULFATE 1 GM, THIAMINE 100 MG in NS 1,000 ML IV SCH (04:34)
[2016-07-31 05:40] LABS: MANUAL DIFF NEEDED? NO
[2016-07-31 06:00] LABS: BASO% 0.7 % (0.0-0.8); EOS# 0.15 X1000 (0.0-0.7); EOS% 3.5 % (0.0-10.0); HEMATOCRIT 40.4 % (42.0-52.0); HEMOGLOBIN 13.5 g/dL (14.0-18.0); LYMPH# 1.46 X1000 (1.2-3.4); MCH 28.8 PG (27-31); MCHC 33.4 g/dL (33-37); MCV 86.1 FL (81-99); MONO# 0.38 X1000 (0.11-0.59); MONO% 8.8 % (1.7-9.3); MPV 10.8 FL (7.4-10.4); PLT 91 X1000 (130-400); RBC 4.69 XMIL (4.7-6.1)
[2016-07-31 06:44] LABS: AGAP 15; ALBUMIN 3.3 g/dL (3.5-5.0); ALKALINE PHOSPHATASE 44 U/L (32-122); BUN 8 mg/dL (8-22); CALCIUM 8.9 mg/dL (8.8-10.2); CHLORIDE 100 mmol/L (98-107); COSMO 274; GOT 42 U/L (10-34); GPT 40 U/L (10-44); POTASSIUM 3.6 mmol/L (3.5-5.1); SODIUM 138 mmol/L (136-145); TCO2 23 mmol/L (25-35); TOTAL BILIRUBIN 0.47 mg/dL (0.20-1.00); TOTAL PROTEIN 6.8 g/dL (6.3-8.3)
[2016-07-31] MEDS: PROTONIX IV SCH ×2 (08:19→20:54)
[2016-07-31] MEDS: SODIUM CHLORIDE 0.9% INJ SCH ×2 (08:19→20:54)
[2016-07-31] MEDS: CATAPRES PO SCH ×2 (08:20→20:54)
[2016-07-31] MEDS: ROCEPHIN 1 GM/NS 50 ML IV SCH (08:20)
[2016-07-31] MEDS: TEARISOL OPH SOLUTION BOTH EYES SCH ×4 (08:30→20:59)
--- NOTE | 2016-07-31 12:30 | PROGRESS NOTE ---
DATE: 07/31/2016 SUBJECTIVE: This patient looks a little bit better compared with yesterday. He is more awake, at this moment he is eating and he is tolerating food. Today physical therapy will work with him. This patient today is hallucinating, he is telling me that he sees some animals inside the room and also he has seen some bugs, actually he has some paper on his ear to prevent some of the bugs from getting inside his ear canal. OBJECTIVE: Vital Signs: Temperature 98.4 degrees, pulse 85, respiratory rate 21. Blood pressure 147/113, O2 saturation 97% on 5 L of nasal cannula. HEENT: Head, normocephalic. No trauma. PERRLA. Neck: Supple. No JVD. No masses. Central trachea. Chest: Clear to auscultation. No wheezing. No rales. Abdomen: Soft, obese, mildly distended. Tender to palpation at the lower abdominal area. Positive bowel sounds. Cardiovascular: RRR. No murmurs. Extremities: No edema. No clubbing. No cyanosis. Neurological: The patient is sleepy but arousable. He is oriented in person. He is hallucinating. No signs of alcohol withdrawal at this moment. LABORATORY: WBC 4.3, hemoglobin 13.5, hematocrit 40.4, platelet 91,000. Sodium 138, potassium 3.6, chloride 100, bicarbonate 23, BUN 8, creatinine 0.7. Glucose 94. Calcium 8.9, AST 42, ALT 40, alkaline phosphatase 44. Albumin 3.3. ASSESSMENT AND PLAN: 1. Initially admitted secondary to acute alcoholic intoxication/withdrawal, I think the treatment is working. He is on Librium 50 mg every 6 hours orally and also he is on p.r.n. medications in case of alcohol withdrawal or delirium tremens or seizures. Probably this patient will be sent to a detox center next week once he is better. Today physical therapy will work with him, he is tolerating diet and I will continue with the IV fluids and multivitamin. 2. Abdominal pain. He is tolerating p.o. I think this abdominal pain is chronic. He is complaining of lower abdominal pain. We will continue to monitor. 3. Hypertension. The blood pressure is stable. We will continue with clonidine scheduled. 4. Polysubstance dependence. This patient has been highly advised against alcohol and cigarette smoking. I will continue with daily cessation education. 5. Gastrointestinal prophylaxis. Continue with Protonix. 6. DVT prophylaxis. I will continue with SCDs. CRITICAL CARE TIME: 30 minutes.
[2016-07-31] MEDS: NS 1,000 ML IV SCH ×2 (12:48→20:54)
[2016-08-01] MEDS: DUONEB (A & A) INH SCH ×6 (03:50→23:44)
[2016-08-01] MEDS: M.V.I.-12 10 ML, FOLIC ACID 1 MG, MAGNESIUM SULFATE 1 GM, THIAMINE 100 MG in NS 1,000 ML IV SCH (04:21)
[2016-08-01] MEDS: NS 1,000 ML IV SCH ×2 (04:21→17:01)
[2016-08-01] MEDS: LIBRIUM PO SCH ×4 (04:21→20:10)
[2016-08-01 06:10] LABS: MANUAL DIFF NEEDED? NO
[2016-08-01 06:20] LABS: BASO% 0.4 % (0.0-0.8); EOS# 0.12 X1000 (0.0-0.7); EOS% 2.6 % (0.0-10.0); HEMATOCRIT 39.8 % (42.0-52.0); HEMOGLOBIN 13.2 g/dL (14.0-18.0); LYMPH# 1.36 X1000 (1.2-3.4); LYMPH% 29.5 % (20.5-51.1); MCH 28.8 PG (27-31); MCHC 33.2 g/dL (33-37); MCV 86.7 FL (81-99); MONO# 0.58 X1000 (0.11-0.59); MONO% 12.6 % (1.7-9.3); MPV 10.9 FL (7.4-10.4); NEUT% 54.9 % (42.2-75.2); PLT 114 X1000 (130-400); RBC 4.59 XMIL (4.7-6.1)
[2016-08-01 06:38] LABS: AGAP 10; ALBUMIN 3.1 g/dL (3.5-5.0); ALKALINE PHOSPHATASE 44 U/L (32-122); BUN 7 mg/dL (8-22); CALCIUM 8.4 mg/dL (8.8-10.2); CHLORIDE 101 mmol/L (98-107); COSMO 272; GOT 39 U/L (10-34); GPT 41 U/L (10-44); POTASSIUM 3.4 mmol/L (3.5-5.1); SODIUM 137 mmol/L (136-145); TCO2 26 mmol/L (25-35); TOTAL BILIRUBIN 0.33 mg/dL (0.20-1.00); TOTAL PROTEIN 6.6 g/dL (6.3-8.3)
[2016-08-01] MEDS: CATAPRES PO SCH ×2 (08:32→20:10)
[2016-08-01] MEDS: NICODERM PATCH TD PRN (08:32)
[2016-08-01] MEDS: SODIUM CHLORIDE 0.9% INJ SCH ×2 (08:32→20:10)
[2016-08-01] MEDS: PROTONIX IV SCH ×2 (08:32→20:10)
[2016-08-01] MEDS: ROCEPHIN 1 GM/NS 50 ML IV SCH (08:33)
[2016-08-01] MEDS: TEARISOL OPH SOLUTION BOTH EYES SCH ×4 (08:33→20:12)
[2016-08-01] MEDS ORDERED: KLOR-CON PO ONE (08:57)
--- NOTE | 2016-08-01 10:14 | PROGRESS NOTE ---
DATE: 08/01/2016 SUBJECTIVE: This patient looks better compared with yesterday. He is more awake. He is talking better. He is tolerating food but he needs to eat slowly or otherwise he will choke. He is not hallucinating today. Physical therapy evaluated this patient yesterday and apparently he stood up. This patient's vital signs are stable. I will transfer this patient to the medical floor to continue treatment. OBJECTIVE: Vital Signs: Temperature 98.4 degrees, pulse 80, respiratory rate 16, blood pressure 131/59, oxygen saturation 96% on 5 L of nasal cannula. HEENT: Head normocephalic. No trauma. PERRLA. Neck: Supple. No JVD. No masses. Central trachea. Chest: Clear to auscultation. No wheezing. No rales. Abdomen: Soft, obese, mildly distended. Mild tenderness to palpation at the level of the lower abdominal area. Positive bowel sounds. Cardiovascular: RRR. No murmurs. Extremities: No edema. No clubbing. No cyanosis. Neurological Examination: The patient is alert. He is oriented in person, time, and place. He is not hallucinating. No signs of alcohol withdrawal or delirium tremens at this moment. Laboratory: WBC 4.6, hemoglobin 13.2, hematocrit 39.8, platelets 114,000. Sodium 137, potassium 3.4, chloride 101, bicarbonate 26, BUN 7, creatinine 0.8, glucose 106, calcium 8.4. Albumin 3.1. ASSESSMENT AND PLAN: 1. Initially, this patient was admitted secondary to alcohol intoxication/withdrawal. I think the treatment is working. He is on Librium 50 mg every 6 hours orally and also he has some as needed medication in case of alcohol withdrawal, delirium tremens, or seizures. Probably, this patient will be sent to a detox center next week, once he is better. Physical therapy is on board. We will continue with that. He is tolerating diet but he needs to eat slowly. Otherwise, he will choke. I will continue with intravenous fluids and multivitamins. Today, he is completely alert and he is oriented x3. He will be transferred to the regular floor. 2. Abdominal pain. He is tolerating orals. I think the abdominal pain is chronic. We will continue to monitor. 3. Hypertension, stable. Continue with clonidine scheduled. 4. Polysubstance dependence. This patient has been highly advised against alcohol and cigarette smoking. I will continue with daily cessation education. 5. Gastrointestinal prophylaxis. Continue with Protonix. 6. Deep venous thrombosis prophylaxis. I will continue with sequential compression devices for now. CRITICAL CARE TIME: 30 minutes.
[2016-08-01] MEDS: ATIVAN IV PRN (21:23)
[2016-08-02] MEDS: LIBRIUM PO SCH ×3 (02:04→15:20)
[2016-08-02] MEDS: M.V.I.-12 10 ML, FOLIC ACID 1 MG, MAGNESIUM SULFATE 1 GM, THIAMINE 100 MG in NS 1,000 ML IV SCH (03:31)
[2016-08-02] MEDS: DUONEB (A & A) INH SCH ×6 (03:50→23:20)
[2016-08-02 04:55] LABS: MANUAL DIFF NEEDED? NO
[2016-08-02 05:21] LABS: BASO% 0.3 % (0.0-0.8); EOS# 0.09 X1000 (0.0-0.7); EOS% 2.5 % (0.0-10.0); HEMATOCRIT 37.9 % (42.0-52.0); HEMOGLOBIN 12.8 g/dL (14.0-18.0); LYMPH# 1.11 X1000 (1.2-3.4); LYMPH% 30.9 % (20.5-51.1); MCH 29.2 PG (27-31); MCHC 33.8 g/dL (33-37); MCV 86.3 FL (81-99); MONO# 0.49 X1000 (0.11-0.59); MONO% 13.6 % (1.7-9.3); MPV 10.1 FL (7.4-10.4); NEUT% 52.7 % (42.2-75.2); PLT 122 X1000 (130-400); RBC 4.39 XMIL (4.7-6.1)
[2016-08-02 05:42] LABS: AGAP 11; ALBUMIN 3.2 g/dL (3.5-5.0); ALKALINE PHOSPHATASE 41 U/L (32-122); BUN 7 mg/dL (8-22); CALCIUM 8.6 mg/dL (8.8-10.2); CHLORIDE 103 mmol/L (98-107); COSMO 275; GOT 35 U/L (10-34); GPT 38 U/L (10-44); POTASSIUM 3.8 mmol/L (3.5-5.1); SODIUM 138 mmol/L (136-145); TCO2 24 mmol/L (25-35); TOTAL PROTEIN 6.7 g/dL (6.3-8.3)
[2016-08-02] MEDS: PROTONIX IV SCH ×2 (08:45→20:59)
[2016-08-02] MEDS: SODIUM CHLORIDE 0.9% INJ SCH ×2 (08:45→20:59)
[2016-08-02] MEDS: ROCEPHIN 1 GM/NS 50 ML IV SCH (08:46)
[2016-08-02] MEDS: CATAPRES PO SCH ×2 (08:46→20:59)
[2016-08-02] MEDS: TEARISOL OPH SOLUTION BOTH EYES SCH ×4 (08:47→21:49)
[2016-08-02] MEDS: NS 1,000 ML IV SCH ×2 (09:42→13:37)
--- NOTE | 2016-08-02 12:13 | PROGRESS NOTE ---
DATE: 08/02/2016 SUBJECTIVE: This patient looks better today and he is feeling better as well. He is not hallucinating. He is more awake. He is tolerating food. Physical therapy is on board. OBJECTIVE: Vital Signs: Temperature 98.2 degrees, pulse 71, respiratory rate 13, blood pressure 157/97, oxygen saturation 96% on 5 L of nasal cannula. HEENT: Head normocephalic. No trauma. PERRLA. Neck: Supple. No JVD. No masses. Central trachea. Chest: Clear to auscultation. No wheezing. No rales. Abdomen: Soft, obese, mildly distended. Mild tenderness to palpation at the level of the lower abdominal area. He has a ventral hernia. Positive bowel sounds. Cardiovascular: RRR. No murmurs. Extremities: No edema. No clubbing. No cyanosis. Neurological: The patient is alert. He is oriented x3. He is not hallucinating. No signs of alcohol withdrawal or delirium tremens at this moment, just generalized weakness. LABORATORY: WBC 3.5, hemoglobin 12.8, hematocrit 37.9, platelets 122,000. Sodium 138, potassium 3.8, chloride 103, bicarbonate 24, BUN 7, creatinine 0.8, glucose 118, calcium 8.6, albumin 3.2. ASSESSMENT AND PLAN: 1. This patient initially was admitted secondary to alcohol intoxication/withdrawal. I think the treatment is working. He is only Librium 50 mg p.o. q.6 hours and also he is on p.r.n. medications in case of alcohol withdrawal, delirium tremens, or seizures. Today I had a conversation with the social workers and they will try to contact a detox center. Physical therapy is on board. I will continue with the same management for now. 2. Abdominal pain. He is tolerating food. I think this abdominal pain is chronic. We will continue to monitor. 3. Hypertension. Stable. Continue with clonidine scheduled. 4. Polysubstance dependent. This patient has been highly advised against alcohol and cigarette smoking. We will continue with daily cessation education. 5. Gastrointestinal prophylaxis. Continue with Protonix. 6. Deep vein thrombosis prophylaxis. I will continue with SCDs. 7. This case has been discussed with the clinical social worker. Will try to get a detox center so we can safely discharge this patient.
[2016-08-02] MEDS: ATIVAN IV PRN (20:59)
[2016-08-03] MEDS: DUONEB (A & A) INH SCH ×6 (03:17→23:46)
[2016-08-03] MEDS: LIBRIUM PO SCH ×5 (03:37→20:05)
[2016-08-03] MEDS: M.V.I.-12 10 ML, FOLIC ACID 1 MG, MAGNESIUM SULFATE 1 GM, THIAMINE 100 MG in NS 1,000 ML IV SCH (03:50)
[2016-08-03 07:01] LABS: MANUAL DIFF NEEDED? NO
[2016-08-03 07:16] LABS: BASO% 0.5 % (0.0-0.8); EOS# 0.07 X1000 (0.0-0.7); EOS% 1.9 % (0.0-10.0); HEMATOCRIT 38.6 % (42.0-52.0); HEMOGLOBIN 12.8 g/dL (14.0-18.0); LYMPH# 1.16 X1000 (1.2-3.4); LYMPH% 31.2 % (20.5-51.1); MCH 28.8 PG (27-31); MCHC 33.2 g/dL (33-37); MCV 86.7 FL (81-99); MONO# 0.55 X1000 (0.11-0.59); MONO% 14.8 % (1.7-9.3); MPV 10.3 FL (7.4-10.4); NEUT% 51.6 % (42.2-75.2); PLT 162 X1000 (130-400); RBC 4.45 XMIL (4.7-6.1)
[2016-08-03 07:28] LABS: AGAP 9; ALBUMIN 3.3 g/dL (3.5-5.0); ALKALINE PHOSPHATASE 43 U/L (32-122); BUN 7 mg/dL (8-22); CALCIUM 8.6 mg/dL (8.8-10.2); CHLORIDE 102 mmol/L (98-107); COSMO 278; GOT 37 U/L (10-34); GPT 41 U/L (10-44); SODIUM 140 mmol/L (136-145); TCO2 29 mmol/L (25-35); TOTAL BILIRUBIN 0.21 mg/dL (0.20-1.00)
[2016-08-03] MEDS: CATAPRES PO SCH ×2 (10:23→20:05)
[2016-08-03] MEDS: SODIUM CHLORIDE 0.9% INJ SCH ×2 (10:23→20:05)
[2016-08-03] MEDS: PROTONIX IV SCH ×2 (10:23→20:05)
[2016-08-03] MEDS: ROCEPHIN 1 GM/NS 50 ML IV SCH (10:24)
[2016-08-03] MEDS: TEARISOL OPH SOLUTION BOTH EYES SCH ×4 (10:25→20:16)
[2016-08-03] MEDS: NS 1,000 ML IV SCH ×2 (13:43→13:45)
--- NOTE | 2016-08-03 16:13 | PROGRESS NOTE ---
DATE: 08/03/2016 SUBJECTIVE: This patient looks about the same compared with yesterday. He is getting better. He told me that he has been seeing bugs on and off. He is more awake. He is tolerating food. Physical therapy is on board. I will continue with the same management for now. remelt worker is on board and they are looking for any detox center to send this patient over. OBJECTIVE: Vital Signs: Temperature 98.1 degrees, pulse 73, respiratory rate 21. Blood pressure 145/79, oxygen saturation 94% on 2 L of nasal cannula. HEENT: Head normocephalic. No trauma. PERRLA. Neck: Supple. No JVD. No masses. Central trachea. Chest: Clear to auscultation. No wheezing. No rales. Abdomen: Soft, obese, mildly distended. Mild tenderness to palpation at the level of the lower abdominal area. He has a ventral hernia. Positive bowel sounds. Cardiovascular: RRR. No murmurs. Extremities: No edema. No clubbing. No cyanosis. Neurological examination: The patient is alert. He is oriented x3. He is having hallucinations on and off. No signs of alcohol withdrawal or delirium tremens at this moment, just generalized weakness. LABORATORY: WBC 3.7, hemoglobin 12.8, hematocrit. 38.6, platelet 162. Sodium 140, potassium 4, chloride 102, bicarbonate 29, BUN 7, creatinine 0.9, glucose 107, calcium 8.6, AST 37, ALT 41, alkaline phosphatase 43, albumin 3.3. ASSESSMENT AND PLAN: 1. This patient initially was admitted secondary to alcohol intoxication/withdrawal. I will continue with Librium 50 mg p.o. q. 6 hours and also p.r.n. medications in case of alcohol withdrawal, delirium tremens or seizures. remelt worker is on board and they are trying to find a detox center for this patient. Physical therapy is on board. We will continue with the same management for now. 2. Abdominal pain. He is tolerating food. I think this abdominal pain is chronic. We will continue to monitor. 3. Physical deconditioning. Physical therapy is on board. We will continue with the same management. 4. Hypertension, stable. Continue with clonidine scheduled. 5. Polysubstance dependence. This patient has been highly advised against alcohol and cigarette smoking. We will continue with daily cessation education. 6. Gastrointestinal prophylaxis. Continue with Protonix. 7. Deep vein thrombosis prophylaxis. I will continue with sequential compression devices.
[2016-08-04] MEDS: LIBRIUM PO SCH ×4 (02:13→20:16)
[2016-08-04] MEDS: NICODERM PATCH TD PRN (02:15)
[2016-08-04] MEDS: NS 1,000 ML IV SCH ×3 (04:20→20:22)
[2016-08-04] MEDS: M.V.I.-12 10 ML, FOLIC ACID 1 MG, MAGNESIUM SULFATE 1 GM, THIAMINE 100 MG in NS 1,000 ML IV SCH (04:20)
[2016-08-04] MEDS: DUONEB (A & A) INH SCH ×6 (04:49→23:14)
[2016-08-04 07:32] LABS: MANUAL DIFF NEEDED? NO
[2016-08-04 07:39] LABS: BASO% 0.2 % (0.0-0.8); EOS# 0.07 X1000 (0.0-0.7); EOS% 1.7 % (0.0-10.0); HEMATOCRIT 38.2 % (42.0-52.0); HEMOGLOBIN 12.6 g/dL (14.0-18.0); LYMPH# 1.21 X1000 (1.2-3.4); LYMPH% 29.8 % (20.5-51.1); MCH 28.4 PG (27-31); MCV 86.2 FL (81-99); MONO# 0.81 X1000 (0.11-0.59); NEUT% 48.3 % (42.2-75.2); PLT 186 X1000 (130-400); RBC 4.43 XMIL (4.7-6.1)
[2016-08-04 07:52] LABS: AGAP 11; ALBUMIN 3.4 g/dL (3.5-5.0); ALKALINE PHOSPHATASE 44 U/L (32-122); BUN 7 mg/dL (8-22); CHLORIDE 101 mmol/L (98-107); COSMO 275; GOT 47 U/L (10-34); GPT 47 U/L (10-44); SODIUM 139 mmol/L (136-145); TCO2 27 mmol/L (25-35); TOTAL PROTEIN 7.1 g/dL (6.3-8.3)
[2016-08-04] MEDS: SODIUM CHLORIDE 0.9% INJ SCH ×2 (08:26→20:16)
[2016-08-04] MEDS: TEARISOL OPH SOLUTION BOTH EYES SCH ×4 (08:26→20:17)
[2016-08-04] MEDS: PROTONIX IV SCH ×2 (08:26→20:16)
[2016-08-04] MEDS: CATAPRES PO SCH ×2 (08:27→20:16)
--- NOTE | 2016-08-04 15:18 | PROGRESS NOTE ---
DATE: 08/04/2016 SUBJECTIVE: This patient looks a little bit better today compared with yesterday, he was sitting on a chair. Family members at the bedside, his daughter. He is talking better, but he is still weak to the point that he cannot walk to the bathroom. OBJECTIVE: Vital Signs: Temperature 98.3 degrees, pulse 73, respiratory rate 20, blood pressure 144/83, oxygen saturation 95% on nasal cannula. HEENT: Head normocephalic. No trauma. PERRLA. Neck: Supple. No JVD. No masses. Central trachea. Chest: Clear to auscultation. No wheezing. No rales. Cardiovascular: RRR. No murmurs. Abdomen: Soft, nondistended. Mild tenderness to palpation at the level of the lower abdomen. Positive bowel sounds. Extremities: No edema. No clubbing. No cyanosis. Neurological examination: The patient is alert and oriented x3. No focal neurological deficits. Generalized weakness. LABORATORY: WBC 4, hemoglobin 12.6, hematocrit 38.2, platelets 186. Sodium 139, potassium 4, chloride 101, bicarbonate 29, BUN 7, creatinine 0.8, glucose 98, calcium 9. ASSESSMENT AND PLAN: 1. Patient admitted secondary to alcohol intoxication/withdrawal. He feels much better. I will continue with Librium 50 mg oral every 6 hours and also as-needed medications in case of alcohol withdrawal, delirium tremens or seizures. fabric worker fitter on board. They are trying to find a detoxification center for this patient. I had a conversation with the daughter. She states that he lives with her and, even though they are living together, he drinks every day. Will continue with the same management for now. 2. Abdominal pain. This patient had a has a chronic abdominal pain. He is tolerating food. We will continue to monitor. 3. Physical deconditioning. This patient is on physical therapy. We will continue with the same management. 4. Hypertension, stable. Continue with clonidine schedule. 5. Polysubstance dependence. This patient has been highly advised against alcohol and cigarette smoking. We will continue with daily cessation education. 6. Gastrointestinal prophylaxis. Continue with Protonix. 7. Deep vein thrombosis prophylaxis. I will continue with sequential compression devices and physical therapy.
[2016-08-04] MEDS: ATIVAN IV PRN (23:45)
[2016-08-05] MEDS: DUONEB (A & A) INH SCH ×6 (03:15→23:20)
[2016-08-05] MEDS: LIBRIUM PO SCH ×4 (03:49→22:46)
[2016-08-05] MEDS: M.V.I.-12 10 ML, FOLIC ACID 1 MG, MAGNESIUM SULFATE 1 GM, THIAMINE 100 MG in NS 1,000 ML IV SCH (03:49)
[2016-08-05 07:40] LABS: MANUAL DIFF NEEDED? NO
[2016-08-05 07:49] LABS: BASO% 0.9 % (0.0-0.8); EOS% 2.2 % (0.0-10.0); HEMATOCRIT 39.9 % (42.0-52.0); HEMOGLOBIN 12.9 g/dL (14.0-18.0); LYMPH% 32.3 % (20.5-51.1); MCH 28.1 PG (27-31); MCHC 32.3 g/dL (33-37); MCV 86.9 FL (81-99); MONO# 0.79 X1000 (0.11-0.59); MPV 9.9 FL (7.4-10.4); NEUT% 47.6 % (42.2-75.2); PLT 246 X1000 (130-400); RBC 4.59 XMIL (4.7-6.1)
[2016-08-05 08:24] LABS: AGAP 12; ALBUMIN 3.8 g/dL (3.5-5.0); ALKALINE PHOSPHATASE 47 U/L (32-122); BUN 9 mg/dL (8-22); CALCIUM 9.2 mg/dL (8.8-10.2); CHLORIDE 101 mmol/L (98-107); COSMO 280; GOT 53 U/L (10-34); GPT 53 U/L (10-44); POTASSIUM 4.1 mmol/L (3.5-5.1); SODIUM 141 mmol/L (136-145); TCO2 28 mmol/L (25-35); TOTAL BILIRUBIN 0.22 mg/dL (0.20-1.00); TOTAL PROTEIN 7.5 g/dL (6.3-8.3)
[2016-08-05] MEDS: TEARISOL OPH SOLUTION BOTH EYES SCH ×4 (08:30→22:46)
[2016-08-05] MEDS: PROTONIX IV SCH ×2 (08:31→22:45)
[2016-08-05] MEDS: CATAPRES PO SCH ×2 (08:31→22:46)
[2016-08-05] MEDS: SODIUM CHLORIDE 0.9% INJ SCH ×2 (08:31→22:45)
[2016-08-05] MEDS ORDERED: GOLYTELY PO ONE (15:26)
[2016-08-05] MEDS: NS 1,000 ML IV SCH ×2 (16:15)
--- NOTE | 2016-08-05 17:24 | PROGRESS NOTE ---
DATE: 08/05/2016 Patient reports feeling better. He is still weak to the point that he cannot walk to the bathroom. OBJECTIVE: Vital Signs: Temperature 97.5 degrees, heart rate 69, respiratory 14, blood pressure 150/73. O2 saturation 96% 2 L nasal cannula. General: This is a chronically ill-looking, disheveled 66-year-old male, lying in bed, in no acute distress. HEENT: Head is normocephalic, atraumatic. Anicteric sclerae and pale conjunctivae. Mucous membranes moist. Neck: Supple. No JVD noted. No carotid bruits. No lymphadenopathy. No thyromegaly. Cardiovascular: S1, S2 heard. No murmurs, gallops, or rubs. Regular rate and rhythm. Respiratory: Clear bilaterally to auscultation. No work of breathing or using accessory muscles. Abdomen: Soft, nontender to palpation. Bowel sounds present. No organomegaly. Extremities: No clubbing, cyanosis, or edema. Peripheral pulses present in both legs. Neurological: Patient alert and oriented x3. Moves 4 extremities. LABORATORY DATA: Reviewed. ASSESSMENT AND PLAN: 1. Alcohol withdrawal. Patient clinically feeling better. Continue with Librium 50 q.6 hours that we are going to taper off it slowly. Actually clinical social work aide is trying to get a placement for this patient. We will check on them tomorrow. 2. Abdominal pain. Patient has chronic abdominal pain but he is tolerating the food and he is eating okay. We will continue to monitor. 3. Physical deconditioning. Physical therapy is following this patient. We will check on them how this patient is doing. 4. Hypertension. That condition is stable. We will continue with clonidine. 5. Polysubstance abuse. Patient has been advised to stop using alcohol and tobacco.
[2016-08-05] MEDS: ATIVAN IV PRN (18:22)
[2016-08-06] MEDS: LIBRIUM PO SCH ×3 (03:21→18:15)
[2016-08-06] MEDS: M.V.I.-12 10 ML, FOLIC ACID 1 MG, MAGNESIUM SULFATE 1 GM, THIAMINE 100 MG in NS 1,000 ML IV SCH (03:21)
[2016-08-06] MEDS: DUONEB (A & A) INH SCH ×5 (03:25→20:04)
[2016-08-06] MEDS: NS 1,000 ML IV SCH ×3 (06:36→16:43)
[2016-08-06] MEDS: TEARISOL OPH SOLUTION BOTH EYES SCH ×5 (09:50→21:50)
[2016-08-06] MEDS: SODIUM CHLORIDE 0.9% INJ SCH (09:50)
[2016-08-06] MEDS: CATAPRES PO SCH ×3 (09:50→21:50)
[2016-08-06] MEDS: PROTONIX IV SCH ×3 (09:50→21:50)
--- NOTE | 2016-08-06 15:26 | PROGRESS NOTE ---
DATE: 08/06/2016 SUBJECTIVE: Patient reports feeling better. He is still having some mild cough. He reports that he is weak and not able to go to the bathroom. He denies any fever or chills. OBJECTIVE: Vital Signs: Temperature 97.6 degrees, heart rate 74, respiratory rate 20, blood pressure 130/42, O2 saturation 92% 2 L nasal cannula. General Examination: This is a chronically ill-looking and disheveled 66-year-old male lying in bed in no acute distress. HEENT: Head is normocephalic and atraumatic. Anicteric sclerae and pale conjunctivae. Mucous membranes moist. Neck: Supple. No JVD. No carotid bruits. No lymphadenopathy. No thyromegaly. Cardiovascular: S1, S2 heard. No murmurs, gallops, rubs. Regular rate and rhythm. Respiratory: Coarse breath sounds in both bases with very few wheezing both bases. Patient is not using any accessory muscles or having work of breathing. Abdomen: Soft, nontender to palpation. Bowel sounds present. No organomegaly. Extremities: No clubbing, cyanosis, edema. Peripheral pulses present in both legs. Neurological: Patient alert, oriented x3. Able to move 4 extremities. Grossly normal. Almost no hand tremors. LABORATORY DATA: There is no lab from today. ASSESSMENT AND PLAN: 1. Alcohol withdrawal. Patient clinically is better. He is not having more visual hallucinations. We are going to taper down the dose of Librium from 50 to 25 q.8 hours. personnel worker is trying to get a placement for this patient for alcohol rehabilitation but this patient needs to get physical therapy 1st. Physical therapy following him daily. 2. Abdominal pain. Patient tolerating the food and he reports that abdominal pain is gone. 3. Physical deconditioning. Patient requires rehab facility but by now that this patient does not have any insurance is difficult for us to get a place for him. In the meantime will stay in the hospital and working with physical therapy. 4. Hypertension stable. 5. Polysubstance abuse. Patient already advised to stop using alcohol and tobacco. The patient is stable by now. Will continue with the medications for alcohol withdrawal and hypertension and for physical deconditioning he will continue receive physical therapy. The patient is going to be transferred to [facility]
[2016-08-06] MEDS: SPIRIVA INH SCH (16:00)
[2016-08-06] MEDS ORDERED: PNEUMOVAX 23 IM ONE (17:30)
[2016-08-07] MEDS: DUONEB (A & A) INH SCH ×7 (00:39→23:17)
[2016-08-07] MEDS: LIBRIUM PO SCH ×3 (01:13→22:57)
[2016-08-07] MEDS: NS 1,000 ML IV SCH (04:26)
[2016-08-07] MEDS: SPIRIVA INH SCH (08:03)
[2016-08-07] MEDS ORDERED: ZOFRAN IV PRN (09:08)
[2016-08-07] MEDS ORDERED: PHENOBARBITAL IV PRN (09:08)
[2016-08-07] MEDS ORDERED: DUONEB (A & A) INH PRN (09:09)
[2016-08-07] MEDS: M.V.I.-12 10 ML, FOLIC ACID 1 MG, MAGNESIUM SULFATE 1 GM, THIAMINE 100 MG in NS 1,000 ML IV SCH (09:31)
[2016-08-07] MEDS: SODIUM CHLORIDE 0.9% INJ SCH (09:31)
[2016-08-07] MEDS: PROTONIX IV SCH (09:31)
[2016-08-07] MEDS: CATAPRES PO SCH ×2 (09:31→20:14)
[2016-08-07] MEDS ORDERED: NS 1,000 ML IV SCH (10:00)
[2016-08-07] MEDS ORDERED: LIBRIUM PO SCH (10:00)
[2016-08-07] MEDS: PRINIVIL PO SCH (12:49)
[2016-08-07] MEDS: TEARISOL OPH SOLUTION BOTH EYES SCH ×3 (12:49→20:18)
--- NOTE | 2016-08-07 13:42 | PROGRESS NOTE ---
DATE: 08/07/2016 SUBJECTIVE: Patient without complaints. Notes that he is still tired, fatigued. States that he has not been out of bed due to his weakness. PHYSICAL EXAMINATION: Vital signs: Reviewed. Temperature 97, pulse 70, respiratory 21, blood pressure 157/85. General: Patient is well developed, well nourished, currently in no real respiratory distress. He is awake, alert. Chest: Clear. Abdomen: Soft. LABORATORY: No labs today. ASSESSMENT: 1. Acute alcohol intoxication withdrawal. Patient currently is still on Librium 25 q. eight. 2. Dyspnea secondary to chronic obstructive pulmonary disease with mild exacerbation. Continues to improve. Also secondary to his generalized fatigue. 3. Generalized fatigue. 4. Abdominal pain. 5. Hypertension. 6. Polysubstance dependence. 7. Nicotine dependence. PLAN: We will begin decreasing patient's Librium to 25 q. 12, as he certainly should be well outside the true alcohol withdrawal window as he has been in the hospital now 11 days. Will change his Protonix to p.o., as he has been on IV Protonix for 11 days. He certainly should be outside of the window of any acute gastrointestinal bleed from his chronic alcoholism. Also, we will saline lock. His blood pressures have been elevated mildly while he has been in the hospital. Will begin him on a low-dose and will follow.
[2016-08-07] MEDS: ATIVAN IV PRN (20:31)
[2016-08-07] MEDS: NICODERM PATCH TD PRN (20:32)
[2016-08-08] MEDS: ATIVAN IV PRN (03:50)
[2016-08-08] MEDS: DUONEB (A & A) INH SCH ×5 (04:11→20:32)
[2016-08-08] MEDS: PROTONIX PO SCH (06:17)
[2016-08-08] MEDS: SPIRIVA INH SCH (08:08)
[2016-08-08] MEDS: PRINIVIL PO SCH (08:57)
[2016-08-08] MEDS: M.V.I.-12 10 ML, FOLIC ACID 1 MG, MAGNESIUM SULFATE 1 GM, THIAMINE 100 MG in NS 1,000 ML IV SCH ×2 (08:57→09:13)
[2016-08-08] MEDS: CATAPRES PO SCH ×2 (08:58→21:18)
[2016-08-08] MEDS: TEARISOL OPH SOLUTION BOTH EYES SCH ×4 (08:59→21:18)
--- NOTE | 2016-08-08 10:31 | PROGRESS NOTE ---
DATE: 08/08/2016 SUBJECTIVE: The patient notes that he is feeling much better this morning. He is having much more time where he is awake and alert. He denies any fevers or chills. Denies any cough or congestion. Notes that he is still tired and fatigued but he is able sit in the chair. OBJECTIVE: Vital signs: Temperature 97, pulse 67, respiratory 18, BP 149/76 to 124/67. General: The patient is well developed, well nourished. Currently in no real respiratory distress. He is awake, alert, oriented. He appears much stronger. His speech is stronger. He is much more alert awake. He is sitting up in the chair, watching television. States that he feels better. HEENT: Normocephalic, atraumatic. LONNIE. Neck: Supple. CV: Regular rate. Chest: Relatively clear. Abdomen: Soft. Extremities: Moves all extremities. Neurologic: No changes. Skin: Warm and dry. No rashes. LABS: No new laboratory data today. Will recheck in the a.m. ASSESSMENT: 1. Hypertension. Blood pressures are better with the addition of 5 mg of lisinopril. 2. Alcohol abuse, withdrawal, and continue stabilization. Patient is much stronger after weaning down his Librium. We will continue to wean down today. 3. Physical deconditioning. Will continue to get him up with assistance. Patient hopefully can discharge home in the next day or two.
[2016-08-08] MEDS: LIBRIUM PO SCH (21:18)
[2016-08-08] MEDS: NICODERM PATCH TD PRN (21:25)
[2016-08-09] MEDS: DUONEB (A & A) INH SCH ×7 (02:06→23:06)
[2016-08-09] MEDS: PROTONIX PO SCH ×2 (05:51→06:00)
[2016-08-09] MEDS ORDERED: ATIVAN IM PRN (05:58)
[2016-08-09 06:17] LABS: HEMATOCRIT 38.9 % (42.0-52.0); HEMOGLOBIN 12.5 g/dL (14.0-18.0); MCHC 32.1 g/dL (33-37); MPV 11.2 FL (7.4-10.4); RBC 4.47 XMIL (4.7-6.1)
[2016-08-09 06:53] LABS: AGAP 12; ALBUMIN 3.5 g/dL (3.5-5.0); ALKALINE PHOSPHATASE 50 U/L (32-122); BUN 7 mg/dL (8-22); CALCIUM 9.3 mg/dL (8.8-10.2); CHLORIDE 102 mmol/L (98-107); COSMO 278; GOT 47 U/L (10-34); GPT 50 U/L (10-44); POTASSIUM 3.9 mmol/L (3.5-5.1); SODIUM 140 mmol/L (136-145); TCO2 26 mmol/L (25-35); TOTAL PROTEIN 6.8 g/dL (6.3-8.3)
[2016-08-09] MEDS: SPIRIVA INH SCH (07:42)
--- NOTE | 2016-08-09 07:50 | PROGRESS NOTE ---
DATE: 08/09/2016 SUBJECTIVE: The patient is quite somnolent this morning after having received Ativan overnight. He was starting to get up some yesterday and sit in the chair for a little bit. Did have a fall last night without any injury. OBJECTIVE: Vital Signs: Reviewed. Temperature 97 degrees, pulse 70, respiratory rate 18, blood pressure 145/66, saturation 93% on room air. General: Patient is well developed, overweight male, who is currently in no respiratory distress. He is sleeping, but is arousable. Quickly falls back asleep. HEENT: Normocephalic, atraumatic. Pupils equal, round, and reactive to light. Neck: Supple. Cardiovascular: Regular rate. Chest: Relatively clear. Abdomen: Soft. Extremities: Moves all extremities. LABORATORIES: CBC and CMP normal, with the exception of AST 47, ALT 50. ASSESSMENT: 1. Alcoholic hepatitis. We will check an abdominal ultrasound today for completeness. 2. Chronic alcoholism. Discussed with the patient that he needs to stop drinking. He states he is aware and desires to stop. 3. Hypertension, stable. 4. Frequent falls secondary to chronic alcoholism. PLAN: Will stop patient's Ativan, wean down his Librium, and continue physical therapy. Hopefully home in the next 1-2 days. He certainly is much more awake and alert after having decrease his Librium yesterday. Also we will increase his lisinopril from 5 to 10 mg to help with blood pressures.
[2016-08-09] MEDS: TEARISOL OPH SOLUTION BOTH EYES SCH ×4 (08:57→20:18)
[2016-08-09] MEDS: PRINIVIL PO SCH (08:57)
[2016-08-09] MEDS: CATAPRES PO SCH ×2 (08:57→20:18)
--- NOTE | 2016-08-09 09:45 | Diag Imaging Result Document ---
PROCEDURE NAME: US ABDOMEN-COMPLETE - 08/09/2016 ABDOMINAL ULTRASOUND: FINDINGS: The visualized portions of the pancreatic body are within normal limits. The aorta and inferior vena cava are within normal limits. The liver is somewhat hyperechoic and not well demonstrated in the deeper portions due to the patient's body habitus. There is antegrade flow in the portal vein. The gallbladder is surgically absent. There is no evidence of biliary dilatation. The common bile duct measuring 6 mm. The spleen is not enlarged. The kidneys are without evidence of hydronephrosis or mass. No abnormal fluid collections are present. IMPRESSION: Hepatic steatosis.
[2016-08-09] MEDS: LIBRIUM PO PRN (19:14)
[2016-08-09] MEDS: LIBRIUM PO SCH (22:45)
[2016-08-10] MEDS: LIBRIUM PO PRN ×2 (02:19→09:51)
[2016-08-10] MEDS: DUONEB (A & A) INH SCH ×4 (03:42→15:01)
[2016-08-10] MEDS: PROTONIX PO SCH (06:04)
[2016-08-10] MEDS: SPIRIVA INH SCH (07:33)
[2016-08-10] MEDS: PRINIVIL PO SCH (08:28)
[2016-08-10] MEDS: CATAPRES PO SCH (08:28)
[2016-08-10] MEDS: TEARISOL OPH SOLUTION BOTH EYES SCH (08:28)
[2016-08-10] MEDS ORDERED: FLUZONE QUAD 2016-2017 SYRINGE IM ONE (08:43)
[2016-08-10] MEDS: NICODERM PATCH TD PRN (08:48)
[2016-08-10 13:42] VITALS: BP 122/72
--- NOTE | 2016-08-10 14:33 | CONSULTATION ---
DATE OF CONSULTATION: 08/10/200 ORTHOPEDIC CONSULT: CHIEF ORTHOPEDIC COMPLAINT: Back pain. HISTORY OF PRESENT ILLNESS: This is a 66-year-old, white male with a long history of drug abuse, alcohol abuse, nicotine abuse. He was admitted due to his alcoholism on 07/27/2016. Orthopedics has been consulted for a compression fracture in his back and his back pain. Patient has history of multiple falls but he states he has had back pain for several years and knows of no specific severe injury. PAST MEDICAL HISTORY: ALLERGIES: Not allergic to medications. HOME MEDICINES: SERIOUS ILLNESSES: Drug abuse, marijuana dependence, alcohol dependence, hypertension, COPD. REVIEW OF SYSTEMS: HEENT: No history of CVA. He states he has frequent dizziness due to drug and alcohol dependence. Respiratory: Has history of COPD and smokes a pack and a half to 2 packs a day. Heart: No history of heart abnormalities. Abdomen: Has a long history of an abdominal hernia. PHYSICAL EXAMINATION: General: This is a 66-year-old male, ill appearing, poor health due to his multiple abuse. HEENT: Pupils are equal, sluggish. Poor dental care. Neck: Fair range of motion without adenopathy. Respiratory: Respirations shallow. Minimal wheezing. No respiratory distress. Heart: Regular rate and rhythm. Abdomen: Has obvious hernia. Has some tenderness about his abdomen. Back and Extremities: He complains of low back pain, sometimes radiates down his left leg. He states he has had back pain for several years. ORTHOPEDIC IMPRESSION: Mild L1 compression fracture. PLAN: Consultation with Physical Therapy, and he will need to follow up with a neurosurgeon in [place] upon discharge. Dictated by Kt Proctor RN for Jabier Mcdowell MD
== END 2016-08-10 15:25 | disposition home health service (06) | DRG 897 ==
LOC: EDUNIT# → EDBD → ED 03:12 → EDIPHOLD 09:15 → ICU 14:08 → 3N 08-02 11:56 → P.MEDSURG 08-06 15:43
PROVIDERS: ATTEND Family Medicine
DX: F10.232 Alcohol dependence with withdrawal with perceptual disturbance (principal); F11.10 Opioid abuse, uncomplicated; J84.10 Pulmonary fibrosis, unspecified; S32.019A Unspecified fracture of first lumbar vertebra, initial encounter for closed fracture; J44.1 Chronic obstructive pulmonary disease with (acute) exacerbation; J98.11 Atelectasis; F10.229 Alcohol dependence with intoxication, unspecified; K70.10 Alcoholic hepatitis without ascites; K70.0 Alcoholic fatty liver; I10 Essential (primary) hypertension; Y90.9 Presence of alcohol in blood, level not specified; F17.210 Nicotine dependence, cigarettes, uncomplicated; K43.9 Ventral hernia without obstruction or gangrene; R09.02 Hypoxemia; F13.10 Sedative, hypnotic or anxiolytic abuse, uncomplicated; F12.20 Cannabis dependence, uncomplicated; E66.9 Obesity, unspecified; R13.10 Dysphagia, unspecified; K20.9 Esophagitis, unspecified; K57.30 Diverticulosis of large intestine without perforation or abscess without bleeding; W19.XXXA Unspecified fall, initial encounter; Z23 Encounter for immunization; Z91.81 History of falling; Z68.34 Body mass index [BMI] 34.0-34.9, adult; Z79.899 Other long term (current) drug therapy
CPT/HCPCS: 71020; 71260; 74020; 74177; 76700; 80048; 80053; 80074; 81001; 82150; 82270; 82550; 82553; 82607; 82728; 82746; 82948; 83036; 83690; 83735; 83880; 84100; 84439; 84443; 84484; 85025; 85027; 85045; 85379; 85610; 85730; 87522; 90732; 93005; 94640; 94761; 94762; 96365; 96367; 96375; 96376; C9113; G0480; J0696; J2060; J2405; J2560; J3360; J3411; J3475; J7030; Q2038; Q9967; 80320; 80324; 80345; 80346; 80349; 80353; 80358; 80361; 80365; 83992; 92610-GN; 97116-GP; 97530-GP; S0164